=== PATIENT | male | born 1975 | race Caucasian/White ===

== ENCOUNTER 2016-12-24 17:53 | Emergency (ER) | payer MEDICAID ==
[~2016-12-24 17:53] MED LIST: AMOXICILLIN500 MG PO; GLU5 PO; LIPI20 PO; LISINOPRIL2.5 MG; LISINOPRIL2.5 MG PO; METFORMIN ER500 M1 PO; METOPROLOL TART25 M1 PO; NOR5 PO; ZESTRIL20 MG PO
[2016-12-24 19:28] VITALS: BP 162/101
== END 2016-12-24 19:28 | disposition home or self-care (01) ==
LOC: ED 17:53
DX: M79.89 Other specified soft tissue disorders (principal); L53.9 Erythematous condition, unspecified; I10 Essential (primary) hypertension; E11.9 Type 2 diabetes mellitus without complications; E78.00 Pure hypercholesterolemia, unspecified; T46.1X5A Adverse effect of calcium-channel blockers, initial encounter; Y92.89 Other specified places as the place of occurrence of the external cause
CPT/HCPCS: J1200; J7512

== ENCOUNTER 2017-04-07 17:00 | Emergency (ER) | payer MEDICAID ==
[~2017-04-07] VITALS: Ht 172.7 cm; Wt 81.2 kg
[2017-04-07 20:00] VITALS: BP 146/100
== END 2017-04-07 20:00 | disposition home or self-care (01) ==
LOC: ED 17:00
DX: S29.012A Strain of muscle and tendon of back wall of thorax, initial encounter (principal); I10 Essential (primary) hypertension; E11.9 Type 2 diabetes mellitus without complications; E78.00 Pure hypercholesterolemia, unspecified; Z79.84 Long term (current) use of oral hypoglycemic drugs; Z79.899 Other long term (current) drug therapy; X58.XXXA Exposure to other specified factors, initial encounter; Y93.89 Activity, other specified; Y92.89 Other specified places as the place of occurrence of the external cause; Y99.8 Other external cause status

== ENCOUNTER 2018-12-12 21:24 | Emergency (ER) | payer MEDICAID ==
[~2018-12-12] VITALS: Ht 162.6 cm; Wt 74.9 kg
[2018-12-12 22:21] VITALS: BP 177/113; Ht 162.6 cm; Wt 74.9 kg
== END 2018-12-12 23:13 | disposition left against medical advice (07) ==
LOC: ED 21:24
DX: Z53.21 Procedure and treatment not carried out due to patient leaving prior to being seen by health care provider (principal)

== ENCOUNTER 2019-01-06 21:33 | Emergency (ER) | payer MEDICAID ==
[~2019-01-06] VITALS: Ht 167.6 cm; Wt 76.7 kg
[2019-01-06 21:46] VITALS: Ht 167.6 cm; Wt 76.7 kg
[2019-01-06 22:24] LABS: BASOPHIL % 0.4 % (0-2); PLATELET COUNT 255 x10^3mcL (130-400); RED CELL DISTRIBUTION WIDTH 13.5 % (11.5-14.5)
[2019-01-06 22:40] LABS: ALBUMIN 4.2 g/dL (3.4-5.0); BILIRUBIN TOTAL 0.44 mg/dL (0.20-1.00); CALCIUM 8.7 mg/dL (8.5-10.1); CARBON DIOXIDE 27.7 mmol/L (21-32); POTASSIUM SERUM 4.4 mmol/L (3.5-5.1)
[2019-01-06 22:41] LABS: CHOLESTEROL/HDL RATIO 4.8; TOTAL PROTEIN, SERUM 8.5 g/dL (6.4-8.2)
[2019-01-06 22:43] LABS: CREATININE SERUM 4.3 mg/dL (0.7-1.3)
[2019-01-07 01:20] VITALS: BP 147/96
== END 2019-01-07 01:20 | disposition home or self-care (01) ==
LOC: ED 21:33
PROVIDERS: Specialist
DX: R07.89 Other chest pain (principal); E11.22 Type 2 diabetes mellitus with diabetic chronic kidney disease; I12.9 Hypertensive chronic kidney disease with stage 1 through stage 4 chronic kidney disease, or unspecified chronic kidney disease; N18.9 Chronic kidney disease, unspecified; E78.00 Pure hypercholesterolemia, unspecified; Z99.2 Dependence on renal dialysis
CPT/HCPCS: 36415; 83880; Q0092

== ENCOUNTER 2019-08-11 12:19 | Emergency (ER) | payer MEDICAID ==
[~2019-08-11] VITALS: Ht 167.6 cm; Wt 85.3 kg
[2019-08-11 12:29] VITALS: Ht 167.6 cm; Wt 85.3 kg
[2019-08-11 13:28] LABS: BASOPHIL % 0.4 % (0-2); PLATELET COUNT 227 x10^3mcL (130-400)
[2019-08-11 13:31] LABS: RED CELL DISTRIBUTION WIDTH 14.7 % (11.5-14.5)
[2019-08-11 13:35] LABS: ALBUMIN 3.4 g/dL (3.4-5.0); BILIRUBIN TOTAL 0.4 mg/dL (0.20-1.00); CALCIUM 7.9 mg/dL (8.5-10.1); CARBON DIOXIDE 26.2 mmol/L (21-32); POTASSIUM SERUM 4.7 mmol/L (3.5-5.1); TOTAL PROTEIN, SERUM 7.5 g/dL (6.4-8.2)
[2019-08-11 13:37] LABS: CREATININE SERUM 8.1 mg/dL (0.7-1.3)
[2019-08-11 14:10] VITALS: BP 127/73
== END 2019-08-11 14:10 | disposition home or self-care (01) ==
LOC: ED 12:19
PROVIDERS: Emergency Medicine
DX: R10.13 Epigastric pain (principal); N18.6 End stage renal disease; D63.1 Anemia in chronic kidney disease
CPT/HCPCS: 36415